=== PATIENT | female | born 1970 | race African-American/Black ===

== ENCOUNTER 2020-10-03 23:24 | Emergency (ER) | payer OTHER ==
[2020-10-03 23:31] VITALS: BMI 33.3
[2020-10-04] MEDS ORDERED: ONDANSETRON 4 MG/2 ML VIAL IVPB ONE (01:13)
[2020-10-04] MEDS ORDERED: ACETAMINOPHEN 500 MG TABLET (FP) PO ONE (01:13)
[2020-10-04] MEDS ORDERED: ONDANSETRON 4 MG/2 ML VIAL ONE (01:24)
[2020-10-04] MEDS ORDERED: ACETAMINOPHEN 325 MG TABLET (FP) ONE (01:24)
[2020-10-04 01:29] LABS: BASO % 0.5 % (0-2.0); EOS % 0.1 % (0-4.5); HEMATOCRIT 43.6 % (32.4-45.2); HEMOGLOBIN 14.7 GM/dL (10.7-15.3); LYMPH % 22.4 % (8-40); MCH 30.8 pg (25.7-33.7); MCHC 33.7 g/dl (32.0-36.0); MEAN CELL VOLUME 91.3 fl (80-96); MEAN PLT VOLUME 7.5 fl (7.5-11.1); MONO % 7.1 % (3.8-10.2); NEUT % 69.9 % (42.8-82.8); PLATELET COUNT 229 K/MM3 (134-434); RBC 4.77 M/mm3 (3.60-5.2); RDW 13.3 % (11.6-15.6); WHITE BLOOD COUNT 8.1 K/mm3 (4.0-10.0)
[2020-10-04 02:09] LABS: ALBUMIN 3.8 g/dl (3.4-5.0); ALK PHOS 121 U/L (45-117); ANION GAP 8 MMOL/L (8-16); BILIRUBIN,TOTAL 0.4 mg/dL (0.2-1); BLOOD UREA NITROGEN 15.3 mg/dL (7-18); CALCIUM 9.7 mg/dL (8.5-10.1); CHLORIDE 106 mmol/L (98-107); CO2 24 mmol/L (21-32); GLUCOSE,RANDOM 110 mg/dL (74-106); SGOT/AST 25 U/L (15-37); SGPT/ALT 32 U/L (13-61); SODIUM 137 mmol/L (136-145); TOT PROT 7.9 g/dl (6.4-8.2)
[2020-10-04 03:40] VITALS: BP 128/78; PULSE 89; TEMP 98.4
== END 2020-10-04 03:53 | disposition home or self-care (01) ==
LOC: JER 23:24
PROC: 3E033GC Introduction of Other Therapeutic Substance into Peripheral Vein, Percutaneous Approach (ICD-10-PCS; principal; 2020-10-03)
DX: R42 Dizziness and giddiness (principal); R06.02 Shortness of breath; R51.9 Headache, unspecified; Z11.52 Encounter for screening for COVID-19
CPT/HCPCS: 36415; 71046-TC-FY; 71275-TC; 80053; 82550; 84484; 85025; 85379; 93005; 93010; 99285-25; C9803; Q9967; U0003; U0005